=== PATIENT | female | born 1950 | race Caucasian/White ===

== ENCOUNTER 2017-07-31 20:53 | Emergency (ER) | payer BC, MEDICAID ==
[~2017-07-31] VITALS: Ht 152.4 cm; Wt 65.9 kg
[~2017-07-31 20:53] MED LIST: AMLO-145 PO; ATEN-51 PO; LOSA1TAB3 PO; PRED20TA PO
[2017-07-31 21:00] VITALS: Ht 152.4 cm; Wt 65.9 kg
[2017-07-31 21:15] VITALS: TEMP 98
[2017-07-31] MEDS ORDERED: LOSA1TAB3 PO (21:50)
[2017-07-31] MEDS ORDERED: LORA0.5T PO (21:51)
[2017-07-31] MEDS ORDERED: METO-335 PO (21:51)
[2017-07-31] MEDS ORDERED: ASPI-664 PO (21:51)
[2017-07-31] MEDS ORDERED: TYL500 PO (21:52)
[2017-07-31] MEDS ORDERED: IBUP-1542 PO (21:52)
[2017-07-31] MEDS ORDERED: RISE35TA3 PO (21:53)
[2017-07-31] MEDS ORDERED: ONDANSETRON 4 MG INJ IV STA (22:07)
[2017-07-31] MEDS ORDERED: morphine 4 MG/ML VIAL IV STA (22:07)
[2017-07-31] MEDS ORDERED: METOCLOPRAMIDE 10 MG INJ IV STA (22:07)
[2017-07-31 23:33] LABS: BASOPHILS % 0.3 % (0.0-2.0); EOSINOPHILS % 0.6 % (0.0-7.0); HEMATOCRIT 36.1 % (37.0-47.0); LYMPHOCYTES # 1.8 10^3/ul (0.8-2.9); LYMPHOCYTES % 25.9 % (15.0-51.0); MEAN CORPUSCULAR HEMOGLOBIN 28.4 pg (29.0-33.0); MEAN CORPUSCULAR HGB CONC 33.2 g/dl (32.0-37.0); MEAN CORPUSCULAR VOLUME 85.5 fl (82.0-101.0); MEAN PLATELET VOLUME 10.2 fl (7.4-10.4); MONOCYTE # 0.4 10^3/ul (0.3-0.9); MONOCYTES % 6.1 % (0.0-11.0); NEUTROPHIL # 4.6 10^3/ul (1.6-7.5); NEUTROPHILS % 66.8 % (39.0-77.0); PLATELET COUNT 248 10^3/UL (140-415); RED BLOOD COUNT 4.22 10^6/ul (4.20-5.40); WHITE BLOOD COUNT 6.9 10^3/ul (4.8-10.8)
[2017-07-31 23:39] LABS: ANION GAP 8 (8-16); BLOOD UREA NITROGEN 18 mg/dl (7-20); CARBON DIOXIDE 28 mmol/L (21-31); CHLORIDE 107 mmol/L (97-110); CREATININE 0.63 mg/dl (0.44-1.00); GLUCOSE 106 mg/dl (70-220); INR 0.91; PARTIAL THROMBOPLASTIN TIME 27.8 Sec (25.0-35.0); POTASSIUM 3.6 mmol/L (3.5-5.1); PROTIME 12.3 Sec (12.2-14.2); SODIUM 139 mmol/L (135-144)
[2017-07-31 23:56] LABS: CALCIUM 10.3 mg/dl (8.4-10.2); TROPONIN-I < 0.012 ng/ml (0.00-0.12)
--- NOTE | 2017-08-01 00:05 | RADRPT ---
PROCEDURE: XR Chest. CLINICAL INDICATION: Headaches TECHNIQUE: AP Portable chest. COMPARISON: 05/26/2013 chest x-ray FINDINGS: The soft tissues and bones are remarkable for mild bilateral acromioclavicular osteoarthropathy and thoracic spondylosis.. No focal infiltrates, masses, or effusions are noted. The mediastinum and h eart are remarkable for mild vascular calcifications of the thoracic aorta and borderline cardiomega ly. No pneumothorax is present. IMPRESSION: 1. No radiographic evidence for acute cardiopulmonary disease. 2. Mild atherosclerotic vascular disease and borderline cardiomegaly RPTAT: HDC .Ttaiana Griggs MD, MD Date Time Electronically viewed and signed by .Tatiana Griggs MD, on 08/01/2017 00:04 .C/
--- NOTE | 2017-08-01 00:58 | RADRPT ---
PROCEDURE: CT Head without. CLINICAL INDICATION: Headache. TECHNIQUE: The study was performed utilizing a multi-slice, multidetector CT scanner. Direct spira l 1 mm axial sections were obtained through the head without the use of intravenous contrast materia l. 1 or more of the following dose reduction techniques were utilized: Automated exposure control, adjustment of the mA and/or kV according to patient's size, iterative reconstruction technique. Co juan and sagittal reformations were obtained. The images were reviewed on a PACS workstation. RADIATION DOSE: CTDIvol: 45.0 mGyDLP: 720.2 mGy-cm COMPARISON: No prior studies are available for comparison. FINDINGS: There is no intracranial hemorrhage, extra-axial fluid collection, mass lesion, midline shift or hyd rocephalus. The ventricles, sulci and cisterns are within normal limits. The white matter is unrem arkable. The tsang-white matter differentiation is preserved. The basal cisterns are patent. The m idline structures are intact. The orbits, calvarium and extracranial soft tissues are normal in rosy earance. The visualized paranasal sinuses, mastoid air cells and middle ear cavities are normally ae rated. IMPRESSION: 1. No acute intracranial abnormality. No intracranial hemorrhage, extra-axial fluid collection, ma ss lesion or hydrocephalous. RPTAT: HGAS .Daren Chaparro MD, MD Date Time Electronically viewed and signed by .Daren Chaparro MD, on 08/01/2017 00:58 .S/
[2017-08-01] MEDS ORDERED: CLON-379 PO (01:33)
--- NOTE | 2017-08-01 01:58 | ERD ---
ER Documentation Chief Complaint Date/Time DATE: 08/01/17 TIME: 01:56 Chief Complaint PT BP AT HOME WAS 200/120; WORST TOLLIVER EVER; HX OF HTN X 5 YRS. HPI This is a very pleasant 66-year-old female comes with severely elevated blood pressure and headache for 24 hours. Denies any nausea vomiting fevers or chills. Denies any chest pain. Does complain of headache. Denies any other current issues. Headache is mild to moderate intensity, no focal neurological complaints. No visual acuity changes. ROS All systems reviewed and are negative except as per history of present illness. Medications Home Meds Active Scripts Clonidine Hcl* (Clonidine Hcl*) 0.1 Mg Tab, 0.1 MG PO Q6, #10 TAB Prov:JOSE ALEJANDRO HINESVal 08/01/17 Reported Medications Risedronate* (Atelvia*) 35 Mg Tablet.dr, 35 MG PO Q7D, TAB 07/31/17 Acetaminophen* (Tylenol*) 500 Mg Tab, 500 MG PO Q4H Y for MILD PAIN LEVEL 1-3, TAB 07/31/17 Ibuprofen* (Ibuprofen*) 600 Mg Tablet, 600 MG PO Q6H Y for PAIN, TAB 07/31/17 Aspirin* (Aspirin* EC) 81 Mg Tablet.dr, 81 MG PO DAILY, TAB 07/31/17 Metoprolol Succinate* (Toprol XL*) 25 Mg Tab.sr.24h, 25 MG PO DAILY, #30 TAB 07/31/17 Lorazepam* (Lorazepam*) 0.5 Mg Tablet, 0.5 MG PO HS Y for ANXIETY, TAB 07/31/17 Losartan/Hydrochlorothiazide (Hyzaar 50-12.5 Tablet) 1 Each Tablet, 1 EACH PO DAILY, TAB 07/31/17 Discontinued Reported Medications Prednisone* (Prednisone*) 20 Mg Tab, 20 MG PO BID 05/26/13 Amlodipine Besylate* (Amlodipine Besylate*) 5 Mg Tablet, 5 MG PO DAILY 05/26/13 Losartan-Hydrochlorothiazide (Hyzaar) 1 Tab Tablet, 1 TAB PO DAILY 11/10/11 Atenolol* (Atenolol*) 25 Mg Tablet, 25 MG PO DAILY 11/10/11 Allergies Allergies: Coded Allergies: No Known Allergy (Unverified , 07/31/17) PMhx/Soc History of Surgery: Yes (hernia) Anesthesia Reaction: No Hx Neurological Disorder: No Hx Respiratory Disorders: No Hx Cardiac Disorders: Yes (htn) Hx Psychiatric Problems: No Hx Miscellaneous Medical Probl: No (ARTHRITIS, SCIATICA ) Hx Alcohol Use: Yes (SOCIALLY, VERY INFREQUENT) Hx Substance Use: No Hx Tobacco Use: No Smoking Status: Never smoker Physical Exam Vitals Vital Signs Date Time Temp Pulse Resp B/P Pulse Ox O2 Delivery O2 Flow Rate FiO2 07/31/17 21:15 98.0 70 22 159/105 94 Room Air 07/31/17 21:00 98.0 89 22 169/111 94 Physical Exam Const: [] Head: Atraumatic Eyes: Normal Conjunctiva ENT: Normal External Ears, Nose and Mouth. Neck: Full range of motion..~ No meningismus. Resp: Clear to auscultation bilaterally Cardio: Regular rate and rhythm, no murmurs Abd: Soft, non tender, non distended. Normal bowel sounds Skin: No petechiae or rashes Back: No midline or flank tenderness Ext: No cyanosis, or edema Neur: Awake and alert Psych: Normal Mood and Affect Result Diagram: 07/31/17210407/31/172104 Results 24 hrs Laboratory Tests Test 07/31/17 21:05 White Blood Count 6.910^3/ul Red Blood Count 4.2210^6/ul Hemoglobin 12.0g/dl Hematocrit 36.1% Mean Corpuscular Volume 85.5fl Mean Corpuscular Hemoglobin 28.4pg Mean Corpuscular Hemoglobin Concent 33.2g/dl Red Cell Distribution Width 13.0% Platelet Count 46799^3/UL Mean Platelet Volume 10.2fl Neutrophils % 66.8% Lymphocytes % 25.9% Monocytes % 6.1% Eosinophils % 0.6% Basophils % 0.3% Nucleated Red Blood Cells % 0.0/100WBC Neutrophils # 4.610^3/ul Lymphocytes # 1.810^3/ul Monocytes # 0.410^3/ul Eosinophils # 0.010^3/ul Basophils # 0.010^3/ul Nucleated Red Blood Cells # 0.010^3/ul Prothrombin Time 12.3Sec Prothrombin Time Ratio 1.0 INR International Normalized Ratio 0.91 Activated Partial Thromboplast Time 27.8Sec Sodium Level 139mmol/L Potassium Level 3.6mmol/L Chloride Level 107mmol/L Carbon Dioxide Level 28mmol/L Anion Gap 8 Blood Urea Nitrogen 18mg/dl Creatinine 0.63mg/dl Glucose Level 106mg/dl Calcium Level 10.3mg/dl Troponin I < 0.012ng/ml Current Medications Medications (Trade) Dose Ordered Sig/Tad Route PRN Reason Start Time Stop Time Status Last Admin Dose Admin Metoclopramide HCl (Reglan) 10 mg ONCE STAT IV 07/31/17 22:07 07/31/17 22:08 DC 07/31/17 22:47 Ondansetron HCl (Zofran Inj) 4 mg ONCE STAT IV 07/31/17 22:07 07/31/17 22:08 DC 07/31/17 22:47 Morphine Sulfate (morphine) 4 mg ONCE STAT IV 07/31/17 22:07 07/31/17 22:08 DC 07/31/17 22:47 Procedures/MDM EKG: Rate/Rhythm: [Normal Sinus Rhythm] QRS, ST, T-waves: [No changes consistent w/ acute ischemia] Impression: [No evidence of ischemia or arrhythmia] Chest X-ray 1V Interpreted by me: Soft Tissue: No acute abnormalities Bones: No acute abnormalities Mediastinum/Cardiac Silhouette/Lungs: [No acute abnormalities] Patient's blood pressure was elevated (>120/80) but appears stable without evidence of hypertension emergency or urgency. The patient was counseled about the risks of hypertension and urged to pursue outpatient monitoring and therapy within a week with their primary care physician. Departure Diagnosis: Primary Impression: Hypertension Hypertension type: essential hypertension Qualified Code: I10 - Essential hypertension Condition: Stable Patient Instructions: High Blood Pressure (Hypertension) Referrals: ALE AREVALO MD (PCP) JOSE ALEJANDRO HINES Aug 01, 2017 01:58
[2017-08-01 02:31] VITALS: BP 139/71; PULSE 71; RESP 20
== END 2017-08-01 02:32 | disposition home or self-care (01) ==
LOC: E/R 20:53
DX: I10 Essential (primary) hypertension (principal); R40.2252 Coma scale, best verbal response, oriented, at arrival to emergency department; R40.2142 Coma scale, eyes open, spontaneous, at arrival to emergency department; R40.2362 Coma scale, best motor response, obeys commands, at arrival to emergency department; R07.9 Chest pain, unspecified; Z79.82 Long term (current) use of aspirin
CPT/HCPCS: 70450; 71010; 80048; 84484; 85025; 85610; 85730; 93005; 96374; 96375; J2270; J2405; J2765; Z7502